=== PATIENT | female | born 1945 | race Caucasian/White ===

== ENCOUNTER 2019-09-30 13:54 | Outpatient (CLI) | payer MEDICARE, OTHER, SELFPAY ==
--- NOTE | ~2019-09-30 | MM_ITS ---
EXAMINATION: MM screening farshad LT w lisa HISTORY: Screening mammogram TECHNIQUE: Craniocaudal and mediolateral oblique 3-D tomosynthesis images were obtained and synthetic 2-D images were generated. CAD analysis was submitted and interpreted. COMPARISON: Comparison to multiple prior studies sequentially, with oldest reviewed study dated 08/15. BREAST PARENCHYMAL COMPOSITION: There are scattered areas of fibroglandular density. FINDINGS: There are benign left breast calcifications. There is no evidence of suspicious mass, calci fication, or architectural distortion to suggest malignancy in the left breast. There has been no magaly picious interval change. IMPRESSION: 1. No mammographic evidence of malignancy. 2. Recommend routine screening mammography in one year. BI-RADS Category 2: Benign finding(s). Reviewed, dictated and finalized at location A. ERER ASSEMBLER
== END 2019-09-30 13:55 | disposition home or self-care (01) ==
LOC: ANHIMG 14:03
PROVIDERS: PCP Internal Medicine; Visit Provider Internal Medicine
DX: Z12.31 Encounter for screening mammogram for malignant neoplasm of breast (principal)
CPT/HCPCS: 77063; 77067

== ENCOUNTER 2020-08-28 00:28 | Outpatient (CLI) | payer MEDICARE, OTHER, SELFPAY ==
[2020-08-28 18:26] LABS: SARS-CoV-2 RNA PCR Negative
== END 2020-08-28 00:29 | disposition home or self-care (01) ==
LOC: ANHCOVIDDT 00:28
PROVIDERS: PCP Internal Medicine; Visit Provider Internal Medicine Critical Care Medicine
DX: Z01.812 Encounter for preprocedural laboratory examination (principal); Z20.822 Contact with and (suspected) exposure to COVID-19
CPT/HCPCS: C9803; U0003; U0005

== ENCOUNTER 2020-09-08 11:41 | Outpatient (CLI) | payer MEDICARE, OTHER, SELFPAY ==
--- NOTE | ~2020-09-08 | XR_ITS ---
XR hip BI 2V w AP pelvis DATE: 09/08/2020 12:20 INDICATION: Pelvic and bilateral hip pain, back pain. TECHNIQUE: AP pelvis. AP and lateral views of each hip. COMPARISON: 06/24/2018 pelvis and right hip FINDINGS: Radiopaque sutures and clips overlie the lower abdomen and pelvis. Mild osteitis pubis. Normal alignment at the pubic symphysis and sacroiliac joints. No pelvic fracture or bone destruction is detected. No fracture, dislocation, avascular necrosis or bone destruction of either hip is evident.. Joint spa karsten are symmetric and relatively preserved. IMPRESSION: Mild osteitis pubis No pelvic or hip fracture or bone destruction Reviewed, dictated and finalized at location A. CIATE DOCTOR
--- NOTE | ~2020-09-08 | XR_ITS ---
XR lumbar spine 6V w bending DATE: 09/08/2020 12:20 INDICATION: Back pain TECHNIQUE: AP, lateral, coned lateral lumbosacral and bilateral oblique views. Flexion and extension lateral views. COMPARISON: None FINDINGS: There is mild levoscoliosis of the lumbar spine. Diffuse osteopenia. No fracture or bone destruction is evident. The lumbar pedicles appear intact. There is severe degenerative disc disease at T12-L1, L1-L2 and L2-L3. There is associated approximate ly 4 mm retrolisthesis at L2-3, increased to 5 mm in extension. There is grade 2 anterolisthesis and moderately severe degenerative disc disease at L5-S1, stable in flexion, neutral and extension. No spondylolysis is noted. The sacroiliac joints appear normal. Postoperative changes of the abdomen. There is extensive calcification of the abdominal aorta, without evidence of aneurysm. There is a prominent amount of fecal material in the colon. IMPRESSION: Diffuse osteopenia Mild levoscoliosis Severe degenerative disc disease at T12-L1, L1-L2, L2-L3 4 mm retrolisthesis at L2-3, increased to 5 mm in extension Grade 2 anterolisthesis and moderately severe degenerative disc disease at L5-S1 Reviewed, dictated and finalized at location A. [employer] IMPRESSION: Diffuse osteopenia Mild levoscoliosis Severe degenerative disc disease at T12-L1, L1-L2, L2-L3 4 mm retrolisthesis at L2-3, increased to 5 mm in extension Grade 2 anterolisthesis and moderately severe degenerative disc disease at L5-S 1
--- NOTE | ~2020-09-08 | XR_ITS ---
XR cervical spine min 6V DATE: 09/08/2020 12:20 INDICATION: Neck pain. No injury. TECHNIQUE: AP, open-mouth, odontoid, lateral views. Flexion and extension lateral views. COMPARISON: None FINDINGS: There is reversal of the lower cervical curvature. Diffuse osteopenia. There is mild anterolisthesis at C3-4 and C4-5: The anterolisthesis at C3-4 is minimal in flexion, extension and neutral. The anterolisthesis at C4-5 measures up to 2.6 mm maximal in flexion, not as prominent in neutral or extension. There is severe degenerative disc disease at C5-6 and C6-7. Uncovertebral joint spurring is noted in the lower cervical spine. There is degenerative change at th e apophyseal joints. C1 and C2 are normally aligned and the odontoid process is intact. No fracture is evident. No prevert ebral soft tissue swelling. IMPRESSION: Reversal lower cervical curvature Prominent cervical spondylosis with anterolisthesis at C3-4 and to a greater extent at C4-5, severe d egenerative disc disease at C5-6 and C6-7 Reviewed, dictated and finalized at location A. E RIDER IMPRESSION: Reversal lower cervical curvature Prominent cervical spondylosis with anterolisthesis at C3-4 and to a greater ex tent at C4-5, severe degenerative disc disease at C5-6 and C6-7
== END 2020-09-08 11:42 | disposition home or self-care (01) ==
LOC: ANHIMG 11:51
PROVIDERS: PCP Internal Medicine; Visit Provider Internal Medicine
DX: M79.89 Other specified soft tissue disorders (principal); M85.88 Other specified disorders of bone density and structure, other site; M51.35 Other intervertebral disc degeneration, thoracolumbar region; M47.892 Other spondylosis, cervical region
CPT/HCPCS: 72052; 72114; 73521

== ENCOUNTER 2021-02-01 08:19 | Outpatient (CLI) | payer MEDICARE, OTHER, SELFPAY ==
--- NOTE | ~2021-02-01 | MM_ITS ---
EXAMINATION: MM screening farshad LT w lisa HISTORY: Screening. Status post right mastectomy. TECHNIQUE: Craniocaudal and mediolateral oblique 3-D tomosynthesis images were obtained and synthetic 2-D images were generated. CAD analysis was submitted and interpreted. COMPARISON: Comparison to multiple prior studies sequentially, with oldest reviewed study dated 08/15. BREAST PARENCHYMAL COMPOSITION: There are scattered areas of fibroglandular density. FINDINGS: There is no evidence of suspicious mass, calcification, or architectural distortion to sugg est malignancy in the left breast. There has been no suspicious interval change. IMPRESSION: 1. No mammographic evidence of malignancy. 2. Recommend routine screening mammography in one year. BI-RADS Category 1: Negative Reviewed, dictated and finalized at location A.
== END 2021-02-01 08:20 | disposition home or self-care (01) ==
LOC: ANHIMG 08:25
PROVIDERS: PCP Internal Medicine; Visit Provider Family Medicine
DX: Z12.31 Encounter for screening mammogram for malignant neoplasm of breast (principal)
CPT/HCPCS: 77063; 77067

== ENCOUNTER → 2021-08-07 09:13 | Outpatient (CLI) | payer MEDICARE, OTHER, SELFPAY ==
--- NOTE | ~2021-08-07 | XR_ITS ---
EXAMINATION: XR hand LT min 3V, XR hand RT min 3V DATE: 08/07/2021 09:45 INDICATION: Bilateral hand pain TECHNIQUE: 1. Posteroanterior, oblique and lateral views of the left hand were obtained. 2. Posteroanterior, oblique and lateral views of the right hand were obtained. COMPARISON: None. FINDINGS: Bone alignment is normal at both hands. No fracture. Polyarticular osteoarthritis at both hands olamide cterized by nonuniform joint space narrowing and small marginal osteophytes. This is of moderate doreen rity at the right second and third metacarpophalangeal, bilateral first interphalangeal, right fourth proximal interphalangeal and left distal radioulnar joints. Mild osteoarthritis at the right distal radioulnar, bilateral wrist, midcarpal, triscaphe, first carpometacarpal and many of the remaining me tacarpophalangeal and interphalangeal joints. There is cystic change within sclerotic margins at both the distal left ulna and along the adjacent proximal articular surface of the left lunate which coul d be seen in the setting of ulnocarpal impaction. There is suggestion of bilateral minimal ulnar posi tive variance although this would be best assessed with dedicated wrist radiographs. Diffuse osteopen ia throughout both hands. No erosions to suggest an inflammatory arthritis at either hand. IMPRESSION: 1. 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 Reviewed, dictated and finalized at location B. SECURITY ARCHITECT IMPRESSION: 1. 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
== END ==
PROVIDERS: PCP Family Medicine; Visit Provider Family Medicine
DX: M18.0 Bilateral primary osteoarthritis of first carpometacarpal joints (principal); M19.042 Primary osteoarthritis, left hand; M19.041 Primary osteoarthritis, right hand; M19.032 Primary osteoarthritis, left wrist; M19.031 Primary osteoarthritis, right wrist
CPT/HCPCS: 73130

== ENCOUNTER 2022-12-25 08:39 | Outpatient (CLI) | payer MEDICARE, OTHER, SELFPAY ==
--- NOTE | ~2022-12-25 | US_ITS ---
EXAMINATION: US art doppler w press LE BI DATE: 12/25/2022 10:26 INDICATION: Right lower limb pain TECHNIQUE: Segmental pressures and plethysmographic and Doppler waveforms of the brachial and lower e xtremity arteries were obtained. COMPARISON: None. FINDINGS: Left brachial artery pressures of 141 mm Hg. Right brachial artery pressures unable to be obtained du e to prior right mastectomy. The right and left high-thigh pressure indices are unable to be obtained due to inability to occlude the vessels at either thigh. The right ankle-brachial index (COLBY) is 1.09 (normal >= 0.9-1). The right great toe-brachial index (T BI) is 0.50 (normal >= 0.6-0.8). The right lower extremity segmental pressure gradients are increased between the right dorsalis pedis artery and the right [id number] popliteal artery (normal gradie nts <= 20-30 mmHg between adjacent levels on the same leg or the same levels on the two legs). Arteri al waveforms are biphasic with brisk systolic upstrokes throughout the arteries of the right lower li mb. The left COLBY is 0.94. The left TBI is 0.69. The left lower extremity segmental pressure gradients are normal. Arterial waveforms are biphasic with brisk systolic upstrokes throughout the arteries of the left lower limb. IMPRESSION: 1. Mild arterial occlusive disease to the right lower limb with mildly decreased right TBI. 2. Equivocal left lower limb arterial occlusive disease with borderline left COLBY but normal TBI. Reviewed, dictated and finalized at location A. IMPRESSION: 1. Mild arterial occlusive disease to the right lower limb with mildly decrease d right TBI. 2. Equivocal left lower limb arterial occlusive disease with borderline left AB I but normal TBI.
== END 2022-12-25 08:40 | disposition home or self-care (01) ==
PROVIDERS: PCP Family Medicine; Visit Provider Nurse Practitioner Family
DX: M79.604 Pain in right leg (principal); E11.59 Type 2 diabetes mellitus with other circulatory complications
CPT/HCPCS: 93923

== ENCOUNTER 2023-03-19 11:06 | Outpatient (CLI) | payer MEDICARE, OTHER, SELFPAY ==
--- NOTE | ~2023-03-19 | MM_ITS ---
EXAMINATION: MM screening farshad LT w lisa HISTORY: Screening TECHNIQUE: Craniocaudal and mediolateral oblique 3-D tomosynthesis images were obtained and synthetic 2-D images were generated. CAD analysis was submitted and interpreted. COMPARISON: Comparison to multiple prior studies sequentially, with oldest reviewed study dated 03/19. BREAST PARENCHYMAL COMPOSITION: Breast composed of scattered areas of fibroglandular density FINDINGS: There is no evidence of suspicious mass, calcification, or architectural distortion to sugg est malignancy in the left .breast. There has been no suspicious interval change. IMPRESSION: 1. No mammographic evidence of malignancy. 2. Recommend routine screening mammography in one year. BI-RADS Category 1: Negative Reviewed, dictated and finalized at location A.
== END 2023-03-19 11:07 | disposition home or self-care (01) ==
LOC: ANHIMG 11:08
PROVIDERS: PCP Family Medicine; Visit Provider Family Medicine
DX: Z12.31 Encounter for screening mammogram for malignant neoplasm of breast (principal)
CPT/HCPCS: 77063; 77067